=== PATIENT | male | born 1985 | race Caucasian/White ===

== ENCOUNTER 2020-10-05 14:43 | Emergency (ER) | payer OTHER ==
--- NOTE | 2020-10-05 16:06 | EDM.PDOC ---
ED HPI GENERAL MEDICAL PROBLEM - General Chief Complaint: Upper Extremity Injury/Pain Stated Complaint: POSSIBLE BROKEN L HAND Time Seen by Provider: 10/05/20 15:30 Source of Information: Reports: Patient, Family History Limitations: Reports: No Limitations - History of Present Illness INITIAL COMMENTS - FREE TEXT/NARRATIVE: 35-year-old male injured his left hand when he reached out to grab something that was falling off the boat and he rammed his hand into a railing where it entered in between his fourth and fifth finger injuring his hand. He has swelling and pain over the fifth metacarpal area. No other injury, he is otherwise healthy. Onset: Sudden Duration: Hour(s): (1 hour ago) Location: Reports: Upper Extremity, Left Quality: Reports: Sharp Worsens with: Reports: Movement Associated Symptoms: Reports: No Other Symptoms Left Hand Pain Score (Numeric/FACES): 1 - Related Data Allergies Allergy/AdvReac Type Severity Reaction Status Date / Time No Known Allergies Allergy Verified 10/05/20 15:20 Home Meds: Home Meds NK [No Known Home Meds] 10/05/20 [History] Past Medical History - Past Health History Medical/Surgical History: Denies Medical/Surgical History Social & Family History - Tobacco Use Tobacco Use Status *Q: Never Tobacco User - Caffeine Use Caffeine Use: Reports: None - Recreational Drug Use Recreational Drug Use: No Review of Systems - Review of Systems Review Of Systems: See Below Constitutional: Denies: Fever Eyes: Denies: Vision Change Respiratory: Reports: No Symptoms Cardiovascular: Reports: No Symptoms GI/Abdominal: Reports: No Symptoms Skin: Denies: Bruising Neurological: Denies: Paresthesia (No numbness of the distal fingers) Psychiatric: Reports: No Symptoms ED EXAM, GENERAL - Physical Exam Exam: See Below Exam Limited By: No Limitations General Appearance: Alert, No Apparent Distress Head: Atraumatic Respiratory/Chest: No Respiratory Distress, Lungs Clear Cardiovascular: Regular Rate, Rhythm Extremities: Other (Exam is otherwise limited to the left hand. Patient has sw elling over the ulnar aspect of the hand, crepitus and extreme tenderness with any palpation of the area. The wrist is nontender.) Neurological: Alert, Oriented Psychiatric: Normal Affect, Normal Mood Skin Exam: Warm, Dry Course - Vital Signs Last Recorded V/S: Last Vital Signs Temp 97.9 F 10/05/20 15:34 Pulse 64 10/05/20 15:34 Resp 12 10/05/20 15:34 BP 154/78 H 10/05/20 15:34 Pulse Ox 97 10/05/20 15:34 - Orders/Labs/Meds Orders: Active Orders 24 hr Category Date Time Status DME for Discharge [COMM] Stat Oth 10/05/20 16:03 Ordered - Re-Assessments/Exams Free Text/Narrative Re-Assessment/Exam: 10/06/20 11:15 X-ray of the left hand was obtained that showed a spiral somewhat displaced fifth metacarpal fracture with moderate displacement. Patient was placed in an ulnar gutter splint, 11 inches long, and placed in a sling. A copy of the x-ray was given to the patient and he will recheck with orthopedics when he gets home next week. 10 hydrocodone were given fracture pain control. Departure - Departure Time of Disposition: 16:15 Disposition: Home, Self-Care 01 Clinical Impression: Metacarpal bone fracture Qualifiers: Encounter type: initial encounter Metacarpal bone: fifth Fracture type: closed Metacarpal location: shaft Fracture alignment: displaced Laterality: left Qualified Code(s): S62.327A - Displaced fracture of shaft of fifth metacarpal bone, left hand, initial encounter for closed fracture - Discharge Information Instructions: Metacarpal Fracture Referrals: PCP,None [Primary Care Provider] - Forms: ED Department Discharge Care Plan Goals: Keep hand in splint until recheck next week. Wear sling to help with elevation, a regular dose of anti-inflammatory will be helpful and use stronger pain medication sparingly if needed and as directed. Take x-ray to your recheck. Sepsis Event Note (ED) - Evaluation Sepsis Screening Result: No Definite Risk - My Orders Last 24 Hours: My Active Orders 10/05/20 16:03 DME for Discharge [COMM] Stat - Assessment/Plan Last 24 Hours: My Active Orders 10/05/20 16:03 DME for Discharge [COMM] Stat
--- NOTE | 2020-10-06 08:53 | CR ---
Hand Comp Min 3V Lt CLINICAL HISTORY: Trauma FINDINGS: There is an oblique slightly displaced fracture of the fifth metacarpal
== END 2020-10-05 16:16 | disposition home or self-care (01) ==
LOC: JP.ED 14:43
DX: S62.327A Displaced fracture of shaft of fifth metacarpal bone, left hand, initial encounter for closed fracture (principal); W20.8XXA Other cause of strike by thrown, projected or falling object, initial encounter
CPT/HCPCS: 29125; 73130-26-LT; 73130-LT; 99283-25